=== PATIENT | female | born 1940 | race Caucasian/White ===

== ENCOUNTER 2021-07-28 10:29 | Inpatient (IN) | payer MEDICARE, MEDICAID ==
[~2021-07-28] VITALS: Ht 165.1 cm; Wt 36.4 kg
[2021-07-28] VITALS (11 sets, daily range): BP systolic 75–109; BP diastolic 34–56
[~2021-07-28 10:29] MED LIST: ADV50250 IH; ALB0.5UD IH; ALEN1TAB3 PO; DOCU100C40 PO; FAMO-128 PO; HYDR-4353 PO; IPRA30SP; TAM75C PO
[2021-07-28] MEDS ORDERED: normal saline 1000ML IV soln IVB ONE ×2 (10:40→11:45)
[2021-07-28] MEDS ORDERED: methylPREDNISolone sod succ 125mg/2ml vial IV ONE (10:40)
[2021-07-28] MEDS ORDERED: ipratropium/albuterol 3ml nebule NEB ONE (10:40)
[2021-07-28 11:25] LABS: BASOPHILS % (AUTO) 0.1 % (0-1); EOSINOPHILS % (AUTO) 0.1 % (0-6); HEMATOCRIT 40.2 % (35.0-45.0); LYMPHOCYTES # (AUTO) 0.4 X10'3 (1.1-4.8); LYMPHOCYTES % (AUTO) 3.1 % (21-51); MEAN CORPUSCULAR HEMOGLOBIN 30.7 PG (27.0-31.0); MEAN CORPUSCULAR HGB CONC 32.3 g/dL (33.0-36.5); MEAN CORPUSCULAR VOLUME 95.1 FL (78-98); MEAN PLATELET VOLUME 6.8 FL (7.4-10.4); MONOCYTES # (AUTO) 0.7 X10'3 (0-0.9); MONOCYTES % (AUTO) 6.2 % (2-12); NEUTROPHILS # (AUTO) 10.9 X10'3 (1.8-7.7); NEUTROPHILS % (AUTO) 90.5 % (42-75); PLATELET COUNT 182 X10'3 (140-440); RED BLOOD COUNT 4.23 X10'6 (4.20-5.60); RED CELL DISTRIBUTION WIDTH 13.4 % (11.5-14.5)
[2021-07-28 11:40] LABS: ANION GAP -1 (8-16); BLOOD UREA NITROGEN 14 MG/DL (7-18); CHLORIDE 93 MMOL/L (99-107); GLUCOSE 139 MG/DL (70-104); POTASSIUM 4.3 MMOL/L (3.5-5.1); SODIUM 135 MMOL/L (135-145)
[2021-07-28 11:41] LABS: ALANINE AMINOTRANSFERASE 13 U/L (12-78); ALBUMIN 3.3 G/DL (3.4-5.0); ALKALINE PHOSPHATASE 43 IU/L (46-116); ASPARTATE AMINO TRANSFERASE 23 U/L (10-37); BILIRUBIN,TOTAL 0.5 MG/DL (0.1-1.0); BUN/CREATININE RATIO 21.2 (6.6-38.0); CALCIUM 8.7 MG/DL (8.5-10.1); CREATININE 0.66 MG/DL (0.40-0.90); TOTAL PROTEIN 6.5 G/DL (6.4-8.2); eGFR 86 ML/MIN
[2021-07-28 11:44] LABS: TOTAL CARBON DIOXIDE 42.8 MMOL/L (24-32)
--- NOTE | 2021-07-28 12:04 | NUR ---
RT IN TO ATTEMPT SVN TX TWICE. UPON SECOND ATTEMPT, PT BEING WHEELED OUT TO CT. PAGE RT WHEN PT IS BACK FROM CT AND AVAILABLE FOR SVN TX
[2021-07-28 12:05] LABS: CLARITY,URINE CLOUDY (Clear); COLOR,URINE YELLOW (Yellow); GLUCOSE, URINE NEGATIVE (Neg); KETONES,URINE NEGATIVE (Neg); LEUKOCYTE ESTERASE ,URINE SMALL (Neg); NITRITES, URINE POSITIVE (Neg); OCCULT BLOOD,URINE SMALL (Neg); PH,URINE 8.5 (4.8-8.0); PROTEIN,URINE NEGATIVE (Neg); UROBILINOGEN,URINE 0.2 E.U/dL (0.2-1.0)
[2021-07-28 12:14] LABS: UA COLLECTION TYPE VOIDED
[2021-07-28 12:16] LABS: BACTERIA,URINE 4+ /HPF (Neg); MUCUS STRANDS MODERATE /LPF (Neg); SQUAMOUS EPITHELIAL CELL,UR FEW /LPF (FEW); WBC CLUMPS,URINE FEW /HPF (NEGATIVE); WBC,URINE 20-30 /HPF (0-4)
[2021-07-28] MEDS ORDERED: acetaminophen 325mg tablet PO STA (12:16)
[2021-07-28] MEDS ORDERED: CefTRIAXone 2gm/D5W 50ml BAG 50 ML IV ONE (12:20)
[2021-07-28] MEDS ORDERED: MULT-1249 PO (13:33)
[2021-07-28] MEDS ORDERED: MIRT7.5T11 PO (13:33)
[2021-07-28] MEDS ORDERED: HYDR-3973 PO (13:33)
[2021-07-28] MEDS ORDERED: ALBU8.5H17 IH (13:33)
[2021-07-28] MEDS ORDERED: albuterol 2.5 MG/3 ML nebule NEB PRN (13:40)
[2021-07-28] MEDS ORDERED: mag hydrox/Alum hydrox/simeth 30ml oral suspension PO PRN (15:05)
[2021-07-28] MEDS ORDERED: morphine 2 MG/ML inj. syringe IV PRN ×3 (15:05→17:10)
[2021-07-28] MEDS ORDERED: acetaminophen 650mg rectal suppository RC PRN (15:05)
[2021-07-28] MEDS ORDERED: magnesium hydroxide 30ml (MOM) UD suspension PO PRN (15:05)
[2021-07-28] MEDS ORDERED: magnesium 4gm in 100ml NS 100 ML IV PRN (15:05)
[2021-07-28] MEDS ORDERED: acetaminophen 325mg tablet PO PRN ×2 (15:05)
[2021-07-28] MEDS ORDERED: potassium Cl 20 mEq SR tablet PO PRN ×2 (15:05)
[2021-07-28] MEDS ORDERED: diphenhydrAMINE 25mg capsule PO PRN (15:05)
[2021-07-28] MEDS ORDERED: magnesium Cl slow-release 64mg tablet PO PRN (15:05)
[2021-07-28] MEDS ORDERED: ipratropium/albuterol 3ml nebule NEB PRN (15:05)
[2021-07-28] MEDS ORDERED: bisacodyl 10mg suppository rectal RC PRN (15:05)
[2021-07-28] MEDS ORDERED: HYDROcodone/acetaminophen 5mg/325mg tablet PO PRN (15:05)
[2021-07-28] MEDS ORDERED: magnesium 2GM in 50ml NS 50 ML IV PRN (15:05)
[2021-07-28] MEDS ORDERED: potassium CL 10mEq/100ml bag 100 ML IV PRN (15:05)
[2021-07-28] MEDS ORDERED: HYDROcodone/acetaminophen 10/325mg tab PO PRN (15:05)
[2021-07-28] MEDS ORDERED: ondansetron/PF 4mg/2ml inj IV PRN ×2 (15:05→17:10)
[2021-07-28] MEDS ORDERED: albuterol 2.5 MG/3 ML nebule NEB ONE (15:10)
[2021-07-28] MEDS ORDERED: iohexol 180mg/ml 20ml inj ONE (15:14)
[2021-07-28 15:37] LABS: HEMOGLOBIN A1C 6.1 % (4.5-6.2)
[2021-07-28] MEDS ORDERED: fentaNYL/PF 50MCG/1 ML 2ML syringe ONE (15:42)
[2021-07-28] MEDS ORDERED: propofol inj 20 ML IV ONE (15:45)
[2021-07-28] MEDS ORDERED: iohexol 300 MG/1 ML 50ml polymer ONE (16:19)
[2021-07-28] MEDS ORDERED: naloxone 0.4 mg/ml inj ONE (16:54)
--- NOTE | 2021-07-28 16:54 | NUR ---
Received from OR via , accompanied by Anesthesiologist DR. JAMESON and report given by Anesthesiolgist AND OR NURSE. PT ARRIVED DROWSY WITH LMA ON 10L OF VIA MASK. LMA REMOVED WITH GISELL AT BEDSIDE AT 1658 AND THEN PT WAS PLACE ON 3L 02 VIA NC. LR RUNNING TO 20G IV TO RIGHT AC. PT HAS MAI CATHETER IN PLACE DRAINING TO GRAVITY WITH BLOOD TINGED URINE. PT VSThomas JAMESON REPORTED THAT PT HAS BEEN HAVING OCCASIONAL PACS AND PVCS AND HAS BEEN HAVING ELEVATED HR. WILL CONTINUE TO MONITOR. Addendum: 07/28/21 at 1725 by Carmen Farris RN Amended: Links added.
[2021-07-28] MEDS ORDERED: proCHLORperazine 10 MG/2 ml inj IV PRN (17:10)
[2021-07-28] MEDS ORDERED: meperidine/PF 25mg/ml syringe IV PRN ×3 (17:10)
[2021-07-28] MEDS ORDERED: ringers solution, lacted 1,000 ML IV SCH (17:10)
[2021-07-28] MEDS ORDERED: morphine 4 MG/ML inj SYRINge IV PRN (17:10)
--- NOTE | 2021-07-28 18:24 | NUR ---
PATIENT HAS MET ALL CRITERIA FOR TRANSFER TO THE PCU FLOOR. VSS. BED LOW, CALL LIGHT PRESENT AND 2 RAILS UP. HETAL MORALEZ PRESENT TO ACCEPT CARE OF PATIENT AND REPORT HAS BEEN CALLED. ALL QUESTIONS ANSWERED TO ACCEPTING RN. Addendum: 07/28/21 at 1843 by Carmen Farris RN Amended: Links added.
[2021-07-28] MEDS: K and/or MAG REPLACEMENT MC SCH (20:00)
[2021-07-28] MEDS: polyethylene glycol 3350 17gm powd pack PO SCH (21:00)
[2021-07-29] MEDS: mirtazapine 15mg tablet PO SCH ×2 (00:05→20:47)
[2021-07-29] MEDS: docusate sod 100mg capsule PO SCH ×3 (00:05→20:44)
[2021-07-29] MEDS: heparin, porcine 5000 units/ml vial SQ SCH ×3 (00:06→20:48)
[2021-07-29 02:00] VITALS: BP 78/34
[2021-07-29] MEDS: normal saline 1000ml 1,000 ML IV SCH ×4 (02:01→23:37)
--- NOTE | 2021-07-29 05:00 | NUR ---
Stable throughout the shift. Drank 200ml fluids. Output 150. Denies pain.
[2021-07-29 06:00] VITALS: BP 88/36
--- NOTE | 2021-07-29 07:15 | NUR ---
Change of shift report given to Kelsea FONG Addendum: 07/29/21 at 0716 by Velma Jenkins RN Amended: Links added.
[2021-07-29 07:22] LABS: BASOPHILS % (AUTO) 0 % (0-1); EOSINOPHILS % (AUTO) 0 % (0-6); HEMATOCRIT 31.8 % (35.0-45.0); HEMOGLOBIN 10.1 g/dl (12.0-16.0); LYMPHOCYTES # (AUTO) 0.3 X10'3 (1.1-4.8); MEAN CORPUSCULAR HEMOGLOBIN 30.4 PG (27.0-31.0); MEAN CORPUSCULAR HGB CONC 31.9 g/dL (33.0-36.5); MEAN CORPUSCULAR VOLUME 95.2 FL (78-98); MEAN PLATELET VOLUME 7.6 FL (7.4-10.4); MONOCYTES # (AUTO) 0.6 X10'3 (0-0.9); MONOCYTES % (AUTO) 4.2 % (2-12); NEUTROPHILS # (AUTO) 14.4 X10'3 (1.8-7.7); NEUTROPHILS % (AUTO) 93.8 % (42-75); PLATELET COUNT 134 X10'3 (140-440); RED BLOOD COUNT 3.34 X10'6 (4.20-5.60); RED CELL DISTRIBUTION WIDTH 13.8 % (11.5-14.5); WHITE BLOOD COUNT 15.3 X10'3 (4.5-11.0)
--- NOTE | 2021-07-29 07:26 | NUR ---
Patient in room PCU 3012. I have received report from HETAL Carreon and had the opportunity to ask questions and assume patient care. Patient asleep in bed and in no acute distress.
[2021-07-29 07:39] LABS: ALANINE AMINOTRANSFERASE 12 U/L (12-78); ALBUMIN 2.2 G/DL (3.4-5.0); ALBUMIN/GLOBULIN RATIO 0.8 (1.1-1.5); ALKALINE PHOSPHATASE 29 IU/L (46-116); ANION GAP 5 (8-16); ASPARTATE AMINO TRANSFERASE 23 U/L (10-37); BILIRUBIN,TOTAL 0.2 MG/DL (0.1-1.0); BLOOD UREA NITROGEN 17 MG/DL (7-18); BUN/CREATININE RATIO 28.3 (6.6-38.0); CALCIUM 7.5 MG/DL (8.5-10.1); CHLORIDE 101 MMOL/L (99-107); CHOL/HDL RATIO 1.6 (0.00-4.99); CHOLESTEROL 130 MG/DL (0-200); GLUCOSE 107 MG/DL (70-104); HDL CHOLESTEROL 81 MG/DL (35-60); LDL CHOLESTEROL 39 MG/DL (50-100); MAGNESIUM 1.5 MG/DL (1.5-2.4); PHOSPHORUS 3.2 MG/DL (2.3-4.5); POTASSIUM 4.1 MMOL/L (3.5-5.1); SODIUM 141 MMOL/L (135-145); TOTAL CARBON DIOXIDE 35.4 MMOL/L (24-32); TRIGLYCERIDES 46 MG/DL (20-135); eGFR > 90 ML/MIN
[2021-07-29] MEDS: K and/or MAG REPLACEMENT MC SCH ×2 (08:00→20:00)
[2021-07-29] MEDS: CefTRIAXone/D5W-Rocephin 1gm 50 ML IV SCH (08:04)
[2021-07-29] MEDS: multivitamins, therapeutics tablet PO SCH (08:04)
[2021-07-29 09:55] LABS: TOTAL CELLS COUNTED 100
[2021-07-29 09:56] LABS: PLATELET ESTIMATE DECREASED
--- NOTE | 2021-07-29 10:27 | NUR ---
Orders for ensure put in per Dr. Nobles.
[2021-07-29 11:00] VITALS: BP 111/29
--- NOTE | 2021-07-29 11:11 | NUR ---
Paged Dr. Nobles regarding oxygen parameters. Message: [id number]. LISETH WALKER. WOULD YOU LIKE PATIENT'S O2 PARAMETERS TO BE CHANGED FROM 90-94 TO 88-92 BECAUSE OF HER COPD? THANK YOU. KELSEA FONG X [phone] Addendum: 07/29/21 at 1135 by Kelsea Khalil RN Dr. Nobles called back and said that it was okay to change the oxygen parameters.
--- NOTE | 2021-07-29 11:35 | NUR ---
Orders to change the oxygen parameters from 90 -4% to 88-90% put in per Dr. Nobles.
[2021-07-29] MEDS: lactose-reduced food (Ensure Enlive) - 237ml bottle PO SCH ×2 (13:00→18:00)
--- NOTE | 2021-07-29 14:26 | NUR ---
Low BMI screen: Pt admitted w/ abd pain, dx R/L hydronephrosis w/ hx of COPD, emphysema, and osteoporosis per EMR, underwent R ureteral stent placement this admit. Pt states her usual wt is 120lb and has lost about 30lb over the last 3 years d/t not having much of an appetite. Non-scaled wt from 2017 shows 99lb and current non scaled wt shows 80lb. Pt appears very thin though this is likely her baseline appearance. Pt states she did consume ONS at home though did not report frequency. Ensure Enlive has been ordered this admit. No edema present though pt w/ severe muscle weakness per physical assessment. Pt is likely chronically undernourished given moderate to severe full-body muscle/fat wasting. Pt denies any chewing or swallowing difficulty. At this time, pt meets minimum criteria for malnutrition, MD notified. Will continue to monitor Recs: 1. Continue Regular diet as tolerated 2. Ensure Enlive TID 3. Bowel care per rx 4. Scaled wt this admit, subsequent weekly wt Addendum: 07/29/21 at [address] Amended: Links added.
[2021-07-29 15:00] VITALS: BP 93/47
[2021-07-29 18:00] VITALS: BP 94/51
--- NOTE | 2021-07-29 18:07 | NUR ---
Problems reprioritized. Patient report given, questions answered & plan of care reviewed with HETAL Chacko. Patient stable at transfer of care.
[2021-07-29] MEDS: polyethylene glycol 3350 17gm powd pack PO SCH (20:48)
[2021-07-30] VITALS (8 sets, daily range): BP systolic 81–116; BP diastolic 31–59
--- NOTE | 2021-07-30 02:00 | NUR ---
Bladder scanned pt since she only had 150ml out in urine. No urine found in bladder at this time. Encourage fluid intake. Urine was tea colored. manager media relationsMiri notified.
--- NOTE | 2021-07-30 06:09 | NUR ---
Problems reprioritized. Patient report given, questions answered & plan of care reviewed with HETAL Vásquez.
[2021-07-30] MEDS: lactose-reduced food (Ensure Enlive) - 237ml bottle PO SCH ×3 (08:00→19:24)
[2021-07-30] MEDS: K and/or MAG REPLACEMENT MC SCH ×2 (08:00→19:25)
--- NOTE | 2021-07-30 08:00 | NUR ---
Pt. working with PT desat page Message: Dr. Nobles. Pt in room 3012A Debbie Loya was working with PT and desated to mid 70's SPO2 on 6L NC; Currently have her on non rebreather; pt O2 is 98% currently; Will continue to monitor and wean as I can. Thanks [facility]
--- NOTE | 2021-07-30 08:00 | NUR ---
Per PT patient desated to mid 70's while sitting at edge of bed; Other vitals as listed BP 114/66 HR- 111; Pt. placed on non-rebreather current O2 sat 100%
--- NOTE | 2021-07-30 08:12 | NUR ---
Pt placed on 6L NC O2 99% will continue to monitor and titrate as needed [facility]
[2021-07-30] MEDS: docusate sod 100mg capsule PO SCH ×2 (08:16→19:26)
[2021-07-30] MEDS: multivitamins, therapeutics tablet PO SCH (08:16)
[2021-07-30] MEDS: heparin, porcine 5000 units/ml vial SQ SCH ×2 (08:16→20:32)
[2021-07-30] MEDS: CefTRIAXone/D5W-Rocephin 1gm 50 ML IV SCH (08:16)
--- NOTE | 2021-07-30 08:20 | NUR ---
Resp therapy was able to wean patient down to 3L NC; Pt. O2 sat 95% Will continue to monitor [facility]
[2021-07-30 09:28] LABS: ALANINE AMINOTRANSFERASE 12 U/L (12-78); ALBUMIN 2.5 G/DL (3.4-5.0); ALBUMIN/GLOBULIN RATIO 0.8 (1.1-1.5); ALKALINE PHOSPHATASE 44 IU/L (46-116); ANION GAP 3 (8-16); ASPARTATE AMINO TRANSFERASE 22 U/L (10-37); BILIRUBIN,TOTAL 0.2 MG/DL (0.1-1.0); BLOOD UREA NITROGEN 25 MG/DL (7-18); BUN/CREATININE RATIO 34.7 (6.6-38.0); CALCIUM 8.1 MG/DL (8.5-10.1); CHLORIDE 100 MMOL/L (99-107); CREATININE 0.72 MG/DL (0.40-0.90); GLUCOSE 92 MG/DL (70-104); MAGNESIUM 1.7 MG/DL (1.5-2.4); PHOSPHORUS 4.5 MG/DL (2.3-4.5); POTASSIUM 4.4 MMOL/L (3.5-5.1); SODIUM 138 MMOL/L (135-145); TOTAL CARBON DIOXIDE 34.9 MMOL/L (24-32); TOTAL PROTEIN 5.6 G/DL (6.4-8.2); eGFR 78 ML/MIN
[2021-07-30 09:42] LABS: BASOPHILS # (AUTO) 0.1 X10'3 (0-0.2); BASOPHILS % (AUTO) 0.3 % (0-1); EOSINOPHILS % (AUTO) 0.2 % (0-6); HEMATOCRIT 42.4 % (35.0-45.0); HEMOGLOBIN 13.1 g/dl (12.0-16.0); LYMPHOCYTES # (AUTO) 0.8 X10'3 (1.1-4.8); LYMPHOCYTES % (AUTO) 3.7 % (21-51); MEAN CORPUSCULAR HEMOGLOBIN 30.5 PG (27.0-31.0); MEAN CORPUSCULAR VOLUME 98.6 FL (78-98); MEAN PLATELET VOLUME 8.9 FL (7.4-10.4); MONOCYTES # (AUTO) 0.9 X10'3 (0-0.9); MONOCYTES % (AUTO) 4.2 % (2-12); NEUTROPHILS % (AUTO) 91.6 % (42-75); PLATELET COUNT 162 X10'3 (140-440); RED CELL DISTRIBUTION WIDTH 14.7 % (11.5-14.5); WHITE BLOOD COUNT 21.8 X10'3 (4.5-11.0)
[2021-07-30 11:03] LABS: PLATELET ESTIMATE NORMAL; TOTAL CELLS COUNTED 100
[2021-07-30 11:04] LABS: ANISOCYTOSIS FEW; TOXIC GRANULATION 1+; TOXIC VACUOLATION 2+
[2021-07-30 11:05] LABS: BURR CELLS 2+; ELLIPTOCYTES FEW
[2021-07-30] MEDS: normal saline 1000ml 1,000 ML IV SCH (15:00)
--- NOTE | 2021-07-30 15:01 | NUR ---
Change in condition Dr. Barr. Pt in room 3012A [place], Debbie is difficult to arouse, which is a change for her. Her vitals are as listed 111/39 HR- 111 resp 18 96% on 4LNC [facility]
[2021-07-30 15:30] LABS: ABG BASE EXCESS -1.8 mmol/L (-2.0-2.0); ABG HCO3 33.8 mmol/L (22.0-26.0); ABG OXYGEN SATURATION 99.2 % (94-97); ABG PCO2 (T) 139.4 mmHg (32.0-45.0); ABG PO2 (T) 203.5 mmHg (75.0-100.0); ALLEN'S TEST POSITIVE; FCOHb 0.4 % (0.0-3.9); FLOW 3 L/min; FMetHb 0.6 % (0.0-1.5); FO2Hb 98.2 % (94-97); PATIENT TEMPERATURE 36.4; TOTAL HEMOGLOBIN 13.7 G/dl (12.0-16.0)
--- NOTE | 2021-07-30 15:39 | NUR ---
ABG Results PAGER ID: [phone] MESSAGE: Debbie Mcpherson ABG results are as listed PH- 6.99 CO2 143.1, PO2 206 HCO3 33.8; did we want to do a Bipap on her? respiratory is at bedside with one. [facility]
--- NOTE | 2021-07-30 15:45 | NUR ---
Per Dr. Barr no order for BIPAP or any other orders due to her DNR status. Pt. appears comfortable a this time. [facility]
--- NOTE | 2021-07-30 17:30 | NUR ---
Pt. mentation improved; Pt. more alert and awake answering questions; O2 sat on 1L 93% [facility] monitor. [facility]
--- NOTE | 2021-07-30 18:22 | NUR ---
Problems reprioritized. Patient report given to Umair RN, questions answered & plan of care reviewed with Umair FONG.
[2021-07-30] MEDS: polyethylene glycol 3350 17gm powd pack PO SCH (19:26)
[2021-07-30] MEDS: lactobacillus rhamnosus 10,000 MMU CELLS/CAPSULE PO SCH (19:26)
[2021-07-30] MEDS: mirtazapine 15mg tablet PO SCH (19:26)
[2021-07-31 02:00] VITALS: BP_SYST 86; BP_SYST 93; BP_DIAS 27; BP_DIAS 37
[2021-07-31 06:00] VITALS: BP 87/36
[2021-07-31 06:09] LABS: BASOPHILS % (AUTO) 0.3 % (0-1); EOSINOPHILS # (AUTO) 0.3 X10'3 (0-0.9); EOSINOPHILS % (AUTO) 1.4 % (0-6); HEMATOCRIT 42.8 % (35.0-45.0); HEMOGLOBIN 12.4 g/dl (12.0-16.0); LYMPHOCYTES # (AUTO) 0.3 X10'3 (1.1-4.8); LYMPHOCYTES % (AUTO) 1.6 % (21-51); MEAN CORPUSCULAR HEMOGLOBIN 30.3 PG (27.0-31.0); MEAN CORPUSCULAR HGB CONC 29.1 g/dL (33.0-36.5); MEAN PLATELET VOLUME 8.4 FL (7.4-10.4); MONOCYTES # (AUTO) 0.6 X10'3 (0-0.9); MONOCYTES % (AUTO) 3.6 % (2-12); NEUTROPHILS # (AUTO) 16.8 X10'3 (1.8-7.7); NEUTROPHILS % (AUTO) 93.1 % (42-75); PLATELET COUNT 153 X10'3 (140-440); RED BLOOD COUNT 4.11 X10'6 (4.20-5.60); RED CELL DISTRIBUTION WIDTH 15.2 % (11.5-14.5)
[2021-07-31 06:20] LABS: ALANINE AMINOTRANSFERASE 17 U/L (12-78); ALBUMIN 2.3 G/DL (3.4-5.0); ALBUMIN/GLOBULIN RATIO 0.7 (1.1-1.5); ALKALINE PHOSPHATASE 51 IU/L (46-116); ANION GAP 10 (8-16); ASPARTATE AMINO TRANSFERASE 16 U/L (10-37); BILIRUBIN,TOTAL 0.3 MG/DL (0.1-1.0); BLOOD UREA NITROGEN 41 MG/DL (7-18); BUN/CREATININE RATIO 29.1 (6.6-38.0); CALCIUM 8.2 MG/DL (8.5-10.1); CHLORIDE 103 MMOL/L (99-107); CREATININE 1.41 MG/DL (0.40-0.90); GLUCOSE 88 MG/DL (70-104); MAGNESIUM 1.9 MG/DL (1.5-2.4); PHOSPHORUS 7.6 MG/DL (2.3-4.5); POTASSIUM 5.7 MMOL/L (3.5-5.1); SODIUM 138 MMOL/L (135-145); TOTAL CARBON DIOXIDE 25.4 MMOL/L (24-32); TOTAL PROTEIN 5.4 G/DL (6.4-8.2); eGFR 36 ML/MIN
[2021-07-31 07:14] LABS: MEAN CORPUSCULAR VOLUME 97.1 FL (78-98)
[2021-07-31] MEDS: CefTRIAXone/D5W-Rocephin 1gm 50 ML IV SCH (07:23)
[2021-07-31] MEDS: heparin, porcine 5000 units/ml vial SQ SCH ×2 (07:23→20:00)
[2021-07-31] MEDS: multivitamins, therapeutics tablet PO SCH (07:24)
[2021-07-31] MEDS: docusate sod 100mg capsule PO SCH ×2 (07:25→19:22)
[2021-07-31] MEDS: K and/or MAG REPLACEMENT MC SCH ×2 (07:25→18:47)
[2021-07-31] MEDS: lactobacillus rhamnosus 10,000 MMU CELLS/CAPSULE PO SCH ×2 (07:25→19:22)
[2021-07-31] MEDS: lactose-reduced food (Ensure Enlive) - 237ml bottle PO SCH ×3 (07:25→18:00)
--- NOTE | 2021-07-31 07:25 | NUR ---
Inability to swallow morning meds Pt. unable to swallow due meds due to inability to follow commands/ lethargy. Will continue to monitor. Hospitalist notified.
--- NOTE | 2021-07-31 09:24 | NUR ---
Nutrition consult: Per documentation pt unable to swallow meds due to inability to follow commands/ lethargy this morning. If pt continues in this state, recommend BSS to assess safety to swallow. Noted Ensure Enlive TID has been ordered but not being sent, d/w dietary to send ONS per rx. If PO remains low, pt may benefit from TF if within plan of care. Will continue to monitor. Recs: 1. Continue Regular diet as tolerated 2. Ensure Enlive TID 3. Bowel care per rx 4. Scaled wt this admit, subsequent weekly wt 5. IF PO does not improve, consider TF if within POC Addendum: 07/31/21 at [address] Amended: Links added.
--- NOTE | 2021-07-31 10:08 | NUR ---
At bedside with Dr. Blake No change of orders at this time. Pt. still lethargic, non-verbal, and has shallow breathing.. Attempted to get ahold of Willard (Son) with no success. Message left. Dr. Blake would like to discuss plan of care with patients family. Will continue to monitor.
--- NOTE | 2021-07-31 10:12 | NUR ---
Pt unable to eat due to change of lethargy. Will continue to monitor [facility]
[2021-07-31 11:00] VITALS: BP 86/31
[2021-07-31] MEDS: normal saline 1000ml 1,000 ML IV SCH (11:45)
[2021-07-31 15:00] VITALS: BP 88/46
--- NOTE | 2021-07-31 18:35 | NUR ---
Problems reprioritized. Patient report given Umair RN, questions answered & plan of care reviewed with Umair FONG.
[2021-07-31] MEDS: polyethylene glycol 3350 17gm powd pack PO SCH (19:22)
[2021-07-31] MEDS: mirtazapine 15mg tablet PO SCH (21:00)
--- NOTE | 2021-07-31 22:50 | NUR ---
Pt to be admitted to 3020A. Report received, from ED HETAL Reina. Pt on Heparin drip. Addendum: 08/01/21 at 0144 by Anabelle Jenkins RN Wrong pt., Note for another pt, in 3019A, written in wrong chart.
--- NOTE | 2021-07-31 23:10 | NUR ---
2221: patient was asystole per heart monitor.scallop dredger physician is aware. 2312: Was able to talked to the daughter Ariane about the patients status.
== END 2021-08-01 01:30 | DRG 853 ==
LOC: ER 10:29 → ED HOLD 15:08 → PCU 3S 18:30
PROVIDERS: ADMIT Family Medicine; ATTEND Family Medicine
PROC: BT1D1ZZ Fluoroscopy of Right Kidney, Ureter and Bladder using Low Osmolar Contrast (ICD-10-PCS; 2021-07-28)
PROC: 0T9B80Z Drainage of Bladder with Drainage Device, Via Natural or Artificial Opening Endoscopic (ICD-10-PCS; 2021-07-28)
PROC: 0T768DZ Dilation of Right Ureter with Intraluminal Device, Via Natural or Artificial Opening Endoscopic (ICD-10-PCS; principal; 2021-07-28 15:38)
DX: A41.9 Sepsis, unspecified organism (principal); E43 Unspecified severe protein-calorie malnutrition; G92.9 Unspecified toxic encephalopathy; J96.20 Acute and chronic respiratory failure, unspecified whether with hypoxia or hypercapnia; N13.6 Pyonephrosis; E87.2 Acidosis; Z68.1 Body mass index [BMI] 19.9 or less, adult; Z66 Do not resuscitate; B96.20 Unspecified Escherichia coli [E. coli] as the cause of diseases classified elsewhere; M81.0 Age-related osteoporosis without current pathological fracture; D49.1 Neoplasm of unspecified behavior of respiratory system; J43.9 Emphysema, unspecified; G89.4 Chronic pain syndrome; F41.9 Anxiety disorder, unspecified; Z20.822 Contact with and (suspected) exposure to COVID-19; E27.8 Other specified disorders of adrenal gland; F32.A Depression, unspecified; J98.4 Other disorders of lung; Z87.891 Personal history of nicotine dependence; Z88.0 Allergy status to penicillin; Z79.899 Other long term (current) drug therapy; Z99.81 Dependence on supplemental oxygen
CPT/HCPCS: 36415; 36600; 71045; 74176; 74420; 76000; 80053; 80061; 81001; 82803; 83036; 83605; 83735; 84100; 84145; 85007; 85018; 85025; 87040; 87077; 87081; 87088; 87186; 87635; 93005; 94640; 94760; 96361; 96365; 96366; 96375; 97161; 97530; 99291; A4340; A4618; C1758; C1769; C2617; C9803; G0378; J0696; J1644; J2310; J2704; J2930; J3010; J7030; J7120; Q9965; Q9967